=== PATIENT | male | born 1940 | race African-American/Black ===

== ENCOUNTER 2018-07-18 15:10 | Inpatient (IN) | payer OTHER ==
[~2018-07-18] VITALS: Ht 190.5 cm; Wt 106.6 kg
[2018-07-18] MEDS ORDERED: ACETAMINOPHEN WITH CODEINE 300/30MG TABLET PO ONE (15:45)
[2018-07-18] MEDS ORDERED: BACITRACIN ZINC 15GM TUBE TOP ONE (17:00)
[2018-07-18] MEDS ORDERED: KETOROLAC 60MG/2ML VIAL IM ONE (17:15)
[2018-07-18] MEDS ORDERED: ONDANSETRON HCL 4MG/2ML INJ IV STA (23:15)
[2018-07-18] MEDS ORDERED: MORPHINE SULFATE 4 MG/ML CPJ (NOT FOR IM USE) IV STA (23:15)
[2018-07-19 02:43] LABS: BASOPHILS % 0.4 % (0.0-2.0); EOSINOPHILS % 0.9 % (0.0-5.0); HEMATOCRIT. 39.5 % (42.0-52.0); HEMOGLOBIN. 13.4 g/dL (14.0-18.0); LYMPHOCYTES % 27.9 % (20.0-50.0); MEAN CORPUSCULAR HEMOGLOBIN 30.8 pg (28.0-32.0); MEAN CORPUSCULAR VOLUME 90.6 fL (80.0-94.0); MEAN PLATELET VOLUME 7.6 fl (7.4-10.4); MONOCYTES % 7.2 % (2.0-8.0); NEUTROPHILS % 63.6 % (40.0-76.0); PLATELET 168 x1000/uL (130-400); RED BLOOD CELL COUNT 4.37 mill/uL (4.7-6.1); RED CELL DISTRIBUTION WIDTH 14.6 % (11.6-14.6)
[2018-07-19 02:49] LABS: INR 1.1; PROTHROMBIN TIME 10.8 sec (9.1-11.1)
[2018-07-19 03:00] LABS: CHLORIDE 107 mEq/L (98-107)
[2018-07-19] MEDS ORDERED: ONDANSETRON HCL 4MG/2ML INJ IV ONE (04:00)
[2018-07-19] MEDS ORDERED: MORPHINE SULFATE 4 MG/ML CPJ (NOT FOR IM USE) IV ONE (04:00)
[2018-07-19] MEDS ORDERED: ONDANSETRON HCL 4MG/2ML INJ IV PRN (09:30)
[2018-07-19] MEDS ORDERED: ACETAMINOPHEN 325MG TABLET PO PRN (09:30)
[2018-07-19] MEDS ORDERED: ACETAMINOPHEN 650MG SUPP PR PRN (09:30)
[2018-07-19] MEDS ORDERED: GUAIFENESIN 200MG/10ML SUGAR FREE UDC PO PRN (09:30)
[2018-07-19] MEDS ORDERED: ACETAMINOPHEN 650MG/20.3ML UDC GT PRN (09:30)
[2018-07-19] MEDS ORDERED: MAGNESIUM/ALUMINUM HYDROXIDE/SIMETHICONE 30ML UDC PO PRN (09:30)
[2018-07-19] MEDS ORDERED: CLONIDINE 0.1MG TABLET PO PRN (09:30)
[2018-07-19] MEDS ORDERED: IPRATROPIUM/ALBUTEROL 0.5-3(2.5)MG/3ML NEB INH PRN (09:30)
[2018-07-19] MEDS ORDERED: DOCUSATE SODIUM 100MG CAPSULE PO PRN (09:30)
[2018-07-19] MEDS ORDERED: NA PHOS,M-B/NA PHOS,DI-BA ENEMA 118ML PR PRN (09:30)
[2018-07-19 10:38] VITALS: BP 122/78
[2018-07-19 11:00] VITALS: BP 163/93
[2018-07-19] MEDS ORDERED: SODIUM CHLORIDE 0.45% 1,000 ML IV SCH (11:00)
[2018-07-19] MEDS: MORPHINE SULFATE 4 MG/ML CPJ (NOT FOR IM USE) IV PRN (14:41)
[2018-07-19] MEDS ORDERED: ASPI-1159 MT (15:03)
[2018-07-19] MEDS ORDERED: ALLO100T MT (15:03)
[2018-07-19 16:00] VITALS: BP 127/65
[2018-07-19] MEDS ORDERED: INFLUENZA VIRUS VACCINE(AFLURIA) 0.5ML SYR IM ONE (16:30)
[2018-07-19] MEDS ORDERED: PNEUMOCOCCAL 23-VAL P-SAC VAC 0.5 ML IM ONE (16:30)
[2018-07-19] MEDS: SODIUM CHLORIDE 0.45% 1,000 ML IV SCH (18:50)
[2018-07-19] MEDS: ALLOPURINOL 100 MG TABLET PO SCH (19:37)
[2018-07-19 20:00] VITALS: BP 119/67
[2018-07-19] MEDS: HYDROCODONE/ACETAMINOPHEN 5/325MG TABLET PO PRN (20:13)
[2018-07-19] MEDS: SODIUM CHLORIDE 0.9% INJ 3ML FLUSH IVF SCH (22:00)
[2018-07-20] VITALS: BP 134/79
[2018-07-20 03:10] LABS: CLARITY URINE CLEAR (CLEAR); COLOR URINE DARK YELLOW (YELLOW); KETONES URINE 1+ (NEGATIVE); LEUKOCYTE ESTERASE URINE 1+ (NEGATIVE); NITRITE URINE NEGATIVE (NEGATIVE); OCCULT BLOOD URINE NEGATIVE (NEGATIVE); PROTEIN URINE NEGATIVE (NEGATIVE); SPECIFIC GRAVITY URINE 1.019 (1.005-1.030)
[2018-07-20 03:26] LABS: *AMPHETAMINES SCREEN URINE NEGATIVE (NEGATIVE); *BARBITURATES SCREEN URINE NEGATIVE (NEGATIVE); *BENZODIAZEPINES SCREEN URINE NEGATIVE (NEGATIVE); *COCAINE SCREEN URINE NEGATIVE (NEGATIVE)
[2018-07-20 03:27] LABS: CANNABINOID URINE SCREEN NEGATIVE (NEGATIVE); METHADONE URINE SCREEN NEGATIVE (NEGATIVE); OPIATES URINE SCREEN PRESUMTIVE POSITIVE (NEGATIVE); PHENCYCLIDINE URINE SCREEN NEGATIVE (NEGATIVE)
[2018-07-20 04:00] VITALS: BP 155/92
[2018-07-20] MEDS: SODIUM CHLORIDE 0.9% INJ 3ML FLUSH IVF SCH ×3 (06:00→23:50)
[2018-07-20] MEDS: HYDROCODONE/ACETAMINOPHEN 5/325MG TABLET PO PRN (06:02)
[2018-07-20 07:12] LABS: BASOPHILS % 0.2 % (0.0-2.0); HEMATOCRIT. 36.5 % (42.0-52.0); HEMOGLOBIN. 12.9 g/dL (14.0-18.0); LYMPHOCYTES % 24.4 % (20.0-50.0); MEAN CORPUSCULAR HEMOGLOBIN 31.9 pg (28.0-32.0); MEAN CORPUSCULAR VOLUME 90.7 fL (80.0-94.0); MONOCYTES % 9.9 % (2.0-8.0); NEUTROPHILS % 64.5 % (40.0-76.0); PLATELET 165 x1000/uL (130-400); RED BLOOD CELL COUNT 4.03 mill/uL (4.7-6.1); RED CELL DISTRIBUTION WIDTH 14.5 % (11.6-14.6)
[2018-07-20 08:00] VITALS: BP 130/71
[2018-07-20] MEDS: ALLOPURINOL 100 MG TABLET PO SCH ×2 (09:24→18:31)
[2018-07-20] MEDS: SODIUM CHLORIDE 0.45% 1,000 ML IV SCH (09:25)
[2018-07-20 09:50] LABS: CHLORIDE 104 mEq/L (98-107)
[2018-07-20 09:56] LABS: HDL CHOLESTEROL 52 mg/dL (40-59); LDL CHOLESTEROL 78 mg/dL (5-100)
[2018-07-20] MEDS ORDERED: INFLUENZA VIRUS VACCINE(AFLURIA) 0.5ML SYR IM ONE (10:00)
[2018-07-20 12:00] VITALS: BP 119/64
[2018-07-20 16:00] VITALS: BP 122/80
[2018-07-20 20:00] VITALS: BP 128/73
[2018-07-21] VITALS (9 sets, daily range): BP systolic 130–174; BP diastolic 73–96
[2018-07-21] MEDS: SODIUM CHLORIDE 0.45% 1,000 ML IV SCH ×2 (02:00→16:27)
[2018-07-21] MEDS: SODIUM CHLORIDE 0.9% INJ 3ML FLUSH IVF SCH ×2 (05:08→14:17)
[2018-07-21] MEDS: ALLOPURINOL 100 MG TABLET PO SCH ×2 (08:45→16:32)
[2018-07-21] MEDS: MORPHINE SULFATE 4 MG/ML CPJ (NOT FOR IM USE) IV PRN (10:32)
[2018-07-21] MEDS: HYDROCODONE/ACETAMINOPHEN 5/325MG TABLET PO PRN (21:26)
== END 2018-07-21 23:14 | disposition short-term general hospital (02) | DRG 553 ==
LOC: ER 15:24 → EDBEDREQSVC 07-19 09:38 → ENRESERV 07-19 09:41 → 6EST 07-19 10:10
PROVIDERS: ADMIT Family Medicine; ATTEND Family Medicine
DX: M25.061 Hemarthrosis, right knee (principal); N17.0 Acute kidney failure with tubular necrosis; E44.1 Mild protein-calorie malnutrition; M25.461 Effusion, right knee; M19.90 Unspecified osteoarthritis, unspecified site; M10.9 Gout, unspecified; D64.9 Anemia, unspecified; I10 Essential (primary) hypertension; R07.9 Chest pain, unspecified; S00.91XA Abrasion of unspecified part of head, initial encounter; V89.2XXA Person injured in unspecified motor-vehicle accident, traffic, initial encounter; Z68.29 Body mass index [BMI] 29.0-29.9, adult; Y92.410 Unspecified street and highway as the place of occurrence of the external cause; Y93.89 Activity, other specified; Y99.8 Other external cause status
CPT/HCPCS: 36415; 71101; 71250; 73560; 73700; 74176; 80061; 80305; 82553; 83880; 84484; 90686; 93005; 96374; 96375; 96376; 97116; 97162; 97166; 99285; J1885; J2270; J2405; L1830